=== PATIENT | female | born 2005 | race Hispanic/Latino ===

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

== ENCOUNTER 2024-02-13 21:36 | Emergency (ER) | payer OTHER ==
[~2024-02-13] VITALS: Ht 157.5 cm; Wt 82.1 kg
[2024-02-14] MEDS ORDERED: HYDROCODON-ACE1 EA10 PO (01:11)
[2024-02-14] MEDS ORDERED: BACTRIM DS TAB1 EACH PO (01:11)
[2024-02-14] MEDS ORDERED: HYDROCODONE BIT/ACETAMINOPHEN 5/325 MG 1 TAB HOME.PACK PO PRN (01:15)
[2024-02-14] MEDS ORDERED: TRIMETHOPRIM/SULFAMETHOXAZOLE 1 EA HOME.PACK PO ONE (01:15)
[2024-02-14 01:25] VITALS: BP 122/70
== END 2024-02-14 01:25 | disposition home or self-care (01) ==
LOC: ED 21:36
DX: L02.31 Cutaneous abscess of buttock (principal)
CPT/HCPCS: 10060; 99283-25; A9270

== ENCOUNTER 2025-01-16 13:30 | Emergency (ER) | payer OTHER ==
[~2025-01-16] VITALS: Ht 157.5 cm; Wt 79.6 kg
[~2025-01-16 13:30] MED LIST changes: +BACTRIM DS TAB1 EACH PO; +HYDROCODON-ACE1 EA10 PO
[2025-01-16] MEDS ORDERED: ACETAMINOPHEN 500 MG TAB PO ONE (15:15)
[2025-01-16] MEDS ORDERED: IBUPROFEN 600 MG TAB PO ONE (15:15)
[2025-01-16] MEDS ORDERED: LIDOCAINE HCL 4% 1 EACH PATCH TD ONE (15:15)
[2025-01-16] MEDS ORDERED: CYCLOBENZAPRINE HCL 10 MG TAB PO ONE (15:15)
[2025-01-16] MEDS ORDERED: CYCLOBENZAPRINE10 MG PO (16:26)
[2025-01-16 16:53] VITALS: BP 106/63
[2025-01-16] MEDS ORDERED: LIDOCAINE PATCH REMOVAL 1 EA TD SCH (21:00)
== END 2025-01-16 16:46 | disposition home or self-care (01) ==
LOC: ED 13:30
DX: M54.6 Pain in thoracic spine (principal); M54.50 Low back pain, unspecified
CPT/HCPCS: 72070; 72100; 84703; 99283; A9270